=== PATIENT | male | born 1980 | race Hispanic/Latino ===

== ENCOUNTER 2018-11-06 11:19 | Emergency (ER) | payer SELFPAY ==
[~2018-11-06] VITALS: Ht 167.6 cm; Wt 90.7 kg
[2018-11-06] MEDS ORDERED: KETOROLAC TROMETHAMINE 60 MG/2 ML VIAL IM ONE (12:45)
--- NOTE | 2018-11-06 13:12 | Diagnostic Imaging Report ---
Exams: Head, maxillofacial and cervical spine CTs without IV contrast History: Fall, pain Comparison studies:None Technique: Axial images were obtained from the brain, face and cervical spine. Coronal and sagittal reconstructions obtained from the axial data. Intravenous contrast: None Findings: Head CT: Scalp: No abnormalities. Bones: No fractures, blastic or lytic lesions. Brain sulci: Appropriate for age. Ventricles: Normal in size and configuration. No hydrocephalus. Parenchyma: No abnormal densities. No masses, acute hemorrhage, acute or chronic vascular insults. Sellar/suprasellar region: No abnormalities Craniocervical junction: The foramen magnum is patent. No Chiari one malformation. Maxillofacial CT: Soft tissues: Right periorbital, perimaxillary perinasal soft tissue hematomas with subcutaneous emphysema and soft tissue swelling which extends to the right premandibular soft tissues. Bones: Mild comment displaced fractures of the right pterygoid and anterior, lateral, posterior and medial franklin of the right maxillary sinus. Mildly comminuted and displaced fractures through the right orbital rim and orbital floor involves the right infraorbital foramen and infraorbital canal. Bilateral [id number]-[id number] type fractures with mildly displaced fracture through the nasal bridge which extends through the inferior outer tables of the frontal sinuses with adjacent ethmoid air cell fractures and fractures along the superomedial orbital with involvement of the right nasolacrimal duct. There is associated bilateral nasal bone fractures and mildly displaced and comminuted fractures of the nasal septum. The posterior tables of the frontal sinuses are intact. Acute partial left onofre-LeFort type I fracture with fracture with mildly comminuted and displaced fractures of the left pterygoid and adjacent medial and posterior franklin of the left maxillary sinus. Chronic left orbital rim and orbital floor fracture with plate and screw construct and orbital floor mesh in place. Orbits: Globes and lenses are intact. No extraocular muscle herniation. Small extraconal gas on the right. Paranasal sinuses: Hemorrhage within the right greater than left maxillary sinuses, bilateral inferior frontal sinuses and bilateral ethmoid air cells. Cervical spine CT: Fractures: None. Soft tissue injuries: No gross acute abnormalities. Atlantoaxial articulation: Intact. Alignment: Normal lordosis. No scoliosis. Cervicomedullary junction: No abnormalities. Patent foramen magnum. Soft tissues: No abnormalities. Vertebrae: No fractures, infection or neoplasm. Degenerative changes: Mildly degenerated C4-C5 and C5-C6 disc with reactive cystic and sclerotic degenerative endplate changes. Patent canal and foramina. IMPRESSION: Head CT: No acute abnormalities. Facial CT: 1. Acute fractures include: Bilateral JANETTE-type fractures which extend to the outer table of the frontal sinuses inferiorly and also involve the right nasal lacrimal duct, bilateral nasal bones and nasal septum, fractures of the pterygoids and bilateral maxillary sinuses (partial bilateral onofre LeFort type I), and right orbital rim and orbital wall. 2. Right facial and perinasal soft tissue hematoma with subcutaneous emphysema. 3. Chip maxillary incisors with fractured right central maxillary incisor. 4. Globe and lens appear intact. No retrobulbar hematoma or extraocular muscle herniation. 5. Chronic left orbital rim and orbital floor fracture status post ORIF without evidence of hardware failure or loosening. Cervical spine CT: 1. No cervical spine fracture or subluxation. 2. Ligament, spinal cord and or vascular abnormalities cannot be excluded on the basis of this examination. Findings discussed with Dr. Wang at 12:50 PM on 11/06/2018. Signed by: Dr. Romeo Mcgowan M.D. on 11/06/2018 1:09 PM
[2018-11-06] MEDS ORDERED: HYDROCODONE/APAP 10MG-325MG TAB PO ONE (13:30)
--- NOTE | 2018-11-06 13:40 | NUR ---
INITIATED TRANSFER TO [facility], FOR HIGHER LEVEL OF CARE AND TRAUMA SERVICES, SPOKE WITH ARELY.
--- NOTE | 2018-11-06 14:22 | NUR ---
REPORT CALLED TO [facility] YUVAL MCKEON
== END 2018-11-06 15:30 | disposition other institution (70) ==
LOC: ER 11:19
DX: S02.2XXA Fracture of nasal bones, initial encounter for closed fracture (principal); S02.411A LeFort I fracture, initial encounter for closed fracture; S02.5XXA Fracture of tooth (traumatic), initial encounter for closed fracture; R51 Headache; Y04.0XXA Assault by unarmed brawl or fight, initial encounter; Y92.89 Other specified places as the place of occurrence of the external cause
CPT/HCPCS: 70450; 70486; 72125; 99284; J1885